=== PATIENT | male | born 1980 | race Caucasian/White ===

== ENCOUNTER 2017-02-10 11:34 | Emergency (ER) | payer OTHER ==
[2017-02-10 12:15] VITALS: BP 122/65; PULSE 52; RESP 18; TEMP 98; O2SAT 98
--- NOTE | 2017-02-10 13:55 | UCPHY ---
H & P Time Seen by Provider: 02/10/17 13:09 Patient Type: New HPI/ROS: This patient complains of laceration to his left hand. The incident occurred at work earlier today. 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 The incident occurred shortly prior to arrival. ROS: No numbness. Reports mild pain that radiates toward the thumb. No difficulty moving the thumb. No other injuries. 5 point ROS is otherwise negative. Smoking Status: Never smoked Physical Exam: Physical Exam Vital signs are normal. General: No acute distress Eyes: Pupils equal and react to light. Extraocular motions are intact. Lungs: No respiratory distress. Cardiac: Brisk capillary refill is intact throughout. Pulses are 2+ and symmetric in the affected extremity. Skin: No rash or pallor. He has a 1.5 cm laceration to the left thumb 1st webspace with minimal bleeding. No foreign bodies are present. Neuro: Alert and oriented x3 with no sensorimotor deficits. Constitutional: Initial Vital Signs Temperature (C) 36.6 C 02/10/17 12:13 Heart Rate 52 L 02/10/17 12:13 Respiratory Rate 18 02/10/17 12:13 Blood Pressure 122/65 H 02/10/17 12:13 O2 Sat (%) 98 02/10/17 12:13 O2 Delivery Mode Room Air Allergies/Adverse Reactions: No Known Allergies Allergy (Unverified 04/01/10 13:19) Home Medications: Medication Instructions Recorded Aspirin 04/01/10 traMADol HCL 04/01/10 Nortriptyline HCl 02/10/17 MDM/Departure - MDM Procedures: The wound is 1.5 cm in length The wound was copiously irrigated with saline. The wound was explored for foreign bodies and none were found. The wound was prepped and draped in the normal sterile fashion. The wound was anesthetized using 1% plain lidocaine, 27 gauge needle-4 mL with good effect. The edges were reapproximated using 4 0 Ethilon-3 running sutures with good hemostasis and cosmesis. The patient tolerated the procedure well. There were no complications - Depart Disposition: Home, Routine, Self-Care Clinical Impression: Hand laceration Qualifiers: Encounter type: initial encounter Laterality: left Qualified Code(s): S61.412A - Laceration without foreign body of left hand, initial encounter Condition: Good Instructions: Care For Your Stitches (ED) Additional Instructions: Diagnosis: Hand laceration Plan: Keep the wound clean and dry for the next 2 days then remove the dressing and clean daily with warm soapy water Return for suture removal in 10-12 days Ibuprofen Tylenol for pain as needed Limited use of hand at work as tolerated. Return sooner if he develops redness, discharge or other concerns for infection Stand Alone Forms: Work Limited Duty, Work Comp Follow Up, Work Excuse Referrals: ARSALAN RUCKER [Other] - As per Instructions - PQRS PQRS Measurement: NA
== END 2017-02-10 14:00 | disposition home or self-care (01) ==
LOC: CED 11:34
PROC: 0HQGXZZ Repair Left Hand Skin, External Approach (ICD-10-PCS; principal; 2017-02-10)
DX: S61.412A Laceration without foreign body of left hand, initial encounter (principal); W26.8XXA Contact with other sharp object(s), not elsewhere classified, initial encounter
CPT/HCPCS: 12001-PO; 99203-PO; G0463-PO